=== PATIENT | male | born 1955 ===

== ENCOUNTER 2019-08-13 11:39 | Emergency (ER) | payer OTHER ==
[~2019-08-13] VITALS: Ht 175.3 cm; Wt 88.6 kg
[2019-08-13 12:00] VITALS: TEMP 97.6
[2019-08-13 12:33] LABS: BASO % 0.6 % (0.0-2.0); EOS # 0.1 (0.0-0.7); EOS % 1.9 % (0-4.0); GRAN # 4.2 (1.4-6.5); GRAN % 66.1 % (42.2-75.2); HEMATOCRIT 42.6 % (42.0-52.0); HEMOGLOBIN 14.6 g/dl (13.5-18.0); LYMPH # 1.4 (1.2-3.4); LYMPH % 22.8 % (20.0-51.0); MEAN CELL VOLUME 91 fl (80.0-100.0); MEAN CORPUSCULAR HEMOGLOBIN 31 pg (27.0-31.0); MEAN CORPUSCULAR HGB CONC 34 g/dl (33.0-37.0); MEAN PLATELET VOLUME 10.7 fl (7.4-10.4); MONO # 0.5 (0.1-0.6); MONO % 8.1 % (1.7-9.3); PLATELET COUNT 200 K/mm3 (130-400); RED BLOOD COUNT 4.67 M/mm3 (4.20-5.60); REDCELL DISTRIBUTION WIDTH-CV 12.2 % (11.5-14.5)
[2019-08-13] MEDS ORDERED: PRINIVIL10 MG PO (12:33)
[2019-08-13] MEDS ORDERED: DESYREL 50MG50 MG PO (12:33)
[2019-08-13] MEDS ORDERED: PROZAC 20MG20 MG PO (12:33)
[2019-08-13 13:04] LABS: ALANINE AMINOTRANSFERASE 31 U/L (4-49); ALBUMIN 4.1 gm/dL (3.5-5.0); ALKALINE PHOSPHATASE 68 U/L (50-136); ANION GAP 5 mmol/L (7-16); AST,SGOT 42 U/L (15-37); BILIRUBIN,TOTAL 0.5 mg/dL (0.0-1.0); BLOOD UREA NITROGEN 15 mg/dL (9-20); CALCIUM 8.9 mg/dL (8.4-10.2); CARBON DIOXIDE 28 mmol/L (22-30); CHLORIDE 104 mmol/L (98-107); CREATININE, serum 0.95 (0.66-1.25); GLUCOSE 103 mg/dL (74-106); POTASSIUM 4.3 mmol/L (3.4-5.0); SODIUM 138 mmol/L (137-145); TOTAL PROTEIN 7.1 gm/dL (6.4-8.2)
[2019-08-13 13:05] LABS: C-REACTIVE PROTEIN < 0.5 mg/dL (0.0-0.9)
[2019-08-13 13:16] LABS: TROPONIN-I < 0.012 ng/mL (0.000-0.035)
[2019-08-13 15:49] VITALS: BP 122/72; PULSE 62
== END 2019-08-13 15:39 | disposition home or self-care (01) ==
LOC: COL.ER 11:39
PROVIDERS: Physician Assistant
DX: R07.9 Chest pain, unspecified (principal); I10 Essential (primary) hypertension; Z79.899 Other long term (current) drug therapy; Z87.891 Personal history of nicotine dependence